=== PATIENT | female | born 1945 | race Caucasian/White ===

== ENCOUNTER 2017-09-25 22:58 | Inpatient (IN) | payer MEDICAID ==
[2017-09-25 23:49] LABS: ADD MAN DIFF? NO
[2017-09-25 23:53] LABS: BASOPHIL # 0.1 10^3/ul (0.0-0.1); BASOPHILS % 1.1 % (0.0-2.0); EOSINOPHILS # 0.7 10^3/ul (0.0-0.5); EOSINOPHILS % 7.5 % (0.0-7.0); HEMATOCRIT 38.7 % (37.0-47.0); HEMOGLOBIN 12.7 g/dl (12.0-16.0); LYMPHOCYTES # 2.4 10^3/ul (0.8-2.9); LYMPHOCYTES % 25.8 % (15.0-51.0); MEAN CORPUSCULAR HEMOGLOBIN 26.3 pg (29.0-33.0); MEAN CORPUSCULAR HGB CONC 32.8 g/dl (32.0-37.0); MEAN CORPUSCULAR VOLUME 80.3 fl (82.0-101.0); MEAN PLATELET VOLUME 11.3 fl (7.4-10.4); MONOCYTE # 0.6 10^3/ul (0.3-0.9); MONOCYTES % 6.2 % (0.0-11.0); NEUTROPHIL # 5.5 10^3/ul (1.6-7.5); NEUTROPHILS % 59.1 % (39.0-77.0); PLATELET COUNT 250 10^3/UL (140-415); RED BLOOD COUNT 4.82 10^6/ul (4.20-5.40); RED CELL DISTRIBUTION WIDTH 13.2 % (11.5-14.5)
[2017-09-25 23:53] LABS: WHITE BLOOD COUNT 9.3 10^3/ul (4.8-10.8)
[2017-09-26 00:15] LABS: ANION GAP 18 (8-16); BLOOD UREA NITROGEN 14 mg/dl (7-20); CALCIUM 9.8 mg/dl (8.4-10.2); CARBON DIOXIDE 22 mmol/L (21-31); CHLORIDE 106 mmol/L (97-110); CREATININE 0.51 mg/dl (0.44-1.00); GLUCOSE 221 mg/dl (70-220); POTASSIUM 4.2 mmol/L (3.5-5.1); SODIUM 142 mmol/L (135-144)
[2017-09-26] MEDS: ASPIRIN 81 MG TAB PO ×2 (00:20→09:00)
[2017-09-26 00:28] LABS: TROPONIN-I 0.121 ng/ml (0.00-0.12)
[2017-09-26] MEDS ORDERED: ACETAMINOPHEN 325 MG TAB PO (03:00)
[2017-09-26] MEDS ORDERED: ONDANSETRON 4 MG INJ IV ×2 (03:00→05:00)
[2017-09-26] MEDS ORDERED: morphine 2 MG INJ IV (04:30)
[2017-09-26] MEDS: hydrALAzine 20 MG INJ IV (04:54)
[2017-09-26] MEDS: DEXTROSE 5%-0.45% NACL 1,000 ML IV (04:56)
[2017-09-26] MEDS: INSULIN ASPART [NOVOLOG] 3 ML PEN SC ×5 (05:00→20:45)
[2017-09-26] MEDS ORDERED: NITROGLYCERIN (SL) 0.4 MG TAB SL (05:00)
[2017-09-26 07:13] LABS: ADD MAN DIFF? NO
[2017-09-26 07:15] LABS: BASOPHIL # 0.1 10^3/ul (0.0-0.1); BASOPHILS % 1.3 % (0.0-2.0); EOSINOPHILS # 0.5 10^3/ul (0.0-0.5); EOSINOPHILS % 7.4 % (0.0-7.0); LYMPHOCYTES % 28.1 % (15.0-51.0); MEAN CORPUSCULAR HEMOGLOBIN 26.5 pg (29.0-33.0); MEAN CORPUSCULAR HGB CONC 33.3 g/dl (32.0-37.0); MEAN CORPUSCULAR VOLUME 79.4 fl (82.0-101.0); MEAN PLATELET VOLUME 11.3 fl (7.4-10.4); MONOCYTE # 0.4 10^3/ul (0.3-0.9); MONOCYTES % 6.3 % (0.0-11.0); NEUTROPHILS % 56.6 % (39.0-77.0); PLATELET COUNT 261 10^3/UL (140-415); RED BLOOD COUNT 4.91 10^6/ul (4.20-5.40); RED CELL DISTRIBUTION WIDTH 13.1 % (11.5-14.5)
[2017-09-26 07:36] LABS: CREATINE KINASE 67 IU/L (23-200)
[2017-09-26 07:40] LABS: ALANINE AMINOTRANSFERASE 22 IU/L (13-69); ALBUMIN 4.2 g/dl (3.3-4.9); ALBUMIN/GLOBULIN RATIO 1.23; ALKALINE PHOSPHATASE 78 IU/L (42-121); ANION GAP 17 (8-16); ASPARTATE AMINO TRANSFERASE 19 IU/L (15-46); BILIRUBIN,INDIRECT 0.3 mg/dl (0-1.1); BILIRUBIN,TOTAL 0.3 mg/dl (0.2-1.3); BLOOD UREA NITROGEN 10 mg/dl (7-20); CALCIUM 9.6 mg/dl (8.4-10.2); CARBON DIOXIDE 24 mmol/L (21-31); CHLORIDE 106 mmol/L (97-110); CHOL/HDL RATIO 3.5 RATIO; CHOLESTEROL 182 mg/dl (100-200); CREATININE 0.44 mg/dl (0.44-1.00); GLUCOSE 136 mg/dl (70-220); HDL CHOLESTEROL 52 mg/dl (33-92); LDL CHOLESTEROL,CALCULATED 98 mg/dl; MAGNESIUM 1.5 mg/dl (1.7-2.5); PHOSPHORUS 4.2 mg/dl (2.5-4.9); POTASSIUM 3.8 mmol/L (3.5-5.1); SODIUM 143 mmol/L (135-144); TOTAL PROTEIN 7.6 g/dl (6.1-8.1); TRIGLYCERIDES 158 mg/dl (0-149)
[2017-09-26 07:45] LABS: HEMOGLOBIN A1C 7.9 % (0-5.9)
[2017-09-26 07:48] LABS: CK-MB 2.68 ng/ml (0.0-2.4)
[2017-09-26 07:56] LABS: TROPONIN-I 0.248 ng/ml (0.00-0.12)
[2017-09-26] MEDS: INSULIN GLARGINE [LANtus] 3 ML PEN SC (08:00)
[2017-09-26] MEDS ORDERED: HEPARIN 1000 UNITS/ML 10 ML INJ (08:08)
[2017-09-26] MEDS ORDERED: LIDOCAINE 1% (MDV) 20 ML INJ (08:08)
[2017-09-26] MEDS ORDERED: FENTAnyl 50 MCG/ML VIAL (08:09)
[2017-09-26] MEDS ORDERED: NITROGLYCERIN (IC) 100 MCG/ML INJ (08:09)
[2017-09-26] MEDS ORDERED: VERAPAMIL 5 MG INJ (08:09)
[2017-09-26] MEDS ORDERED: MIDAZOLAM 1 MG/ML 2 ML INJ (08:09)
[2017-09-26] MEDS: GABAPENTIN 100 MG CAP PO ×3 (09:00→20:42)
[2017-09-26] MEDS ORDERED: DILTIAZEM (CD) 180 MG CAP PO (09:00)
[2017-09-26] MEDS ORDERED: HEPARIN 5,000 UNIT/0.5 ML VIAL SC (09:00)
[2017-09-26] MEDS: LOSARTAN 50 MG TAB PO (09:00)
[2017-09-26] MEDS: METOPROLOL 25 MG TAB PO ×2 (10:00→20:43)
[2017-09-26] MEDS: MAGNESIUM SULFATE 2 GM/50 ML 50 ML IVPB (10:34)
[2017-09-26] MEDS: ENOXAPARIN 100 MG/ML SYG SC ×2 (11:00→20:49)
[2017-09-26] MEDS ORDERED: ACETAMINOPHEN 325 MG TAB (11:40)
[2017-09-26] MEDS: ACETAMINOPHEN 325 MG TAB PO (11:48)
[2017-09-26 15:04] LABS: CREATINE KINASE 64 IU/L (23-200)
[2017-09-26 15:11] LABS: CK INDEX 3.9; CK-MB 2.47 ng/ml (0.0-2.4)
[2017-09-26 15:22] LABS: TROPONIN-I 0.288 ng/ml (0.00-0.12)
[2017-09-26] MEDS ORDERED: INSULIN DETEMIR [LEVEMIR] 3ML CART SC (20:00)
[2017-09-26] MEDS: ATORVASTATIN 40 MG TAB PO (20:42)
[2017-09-26] MEDS ORDERED: ATORVASTATIN 20 MG TAB PO (21:00)
[2017-09-26] MEDS ORDERED: DEXTROSE 50% 50 ML SYRINGE IV ×2 (21:30)
[2017-09-26] MEDS ORDERED: GLUCOSE GEL 15 GRAM TUBE PO ×2 (21:30)
[2017-09-26] MEDS ORDERED: GLUCAGON 1 MG INJ IM (21:30)
[2017-09-26] MEDS ORDERED: GLUCOSE GEL 15 GRAM TUBE BUCCAL (21:30)
[2017-09-27] MEDS: ACCU-CHEK XX (02:00)
[2017-09-27] MEDS ORDERED: ACCU-CHEK XX (02:00)
[2017-09-27] MEDS: ASPIRIN 81 MG TAB PO (08:24)
[2017-09-27] MEDS: LOSARTAN 50 MG TAB PO (08:24)
[2017-09-27] MEDS: GABAPENTIN 100 MG CAP PO (08:25)
[2017-09-27] MEDS: METOPROLOL 25 MG TAB PO (08:25)
[2017-09-27] MEDS: INSULIN ASPART [NOVOLOG] 3 ML PEN SC ×2 (08:28→12:08)
[2017-09-27] MEDS: ENOXAPARIN 100 MG/ML SYG SC (08:29)
[2017-09-27] MEDS: INSULIN GLARGINE [LANtus] 3 ML PEN SC (09:04)
[2017-09-28] MEDS ORDERED: INFLUENZA VIRUS VACCINE 0.5 ML (DISPENSING) IM* (09:00)
== END 2017-09-27 13:06 | disposition home or self-care (01) | DRG 281 ==
LOC: TEL 09-26 03:28 → E/R 22:58 → TEL 09-26 02:50
PROC: 4A023N7 Measurement of Cardiac Sampling and Pressure, Left Heart, Percutaneous Approach (ICD-10-PCS; principal; 2017-09-26 08:30)
PROC: B211YZZ Fluoroscopy of Multiple Coronary Arteries using Other Contrast (ICD-10-PCS; 2017-09-26 08:30)
PROC: B215YZZ Fluoroscopy of Left Heart using Other Contrast (ICD-10-PCS; 2017-09-26 08:30)
DX: I21.4 Non-ST elevation (NSTEMI) myocardial infarction (principal); I42.9 Cardiomyopathy, unspecified; I10 Essential (primary) hypertension; E78.5 Hyperlipidemia, unspecified; E11.9 Type 2 diabetes mellitus without complications; I25.10 Atherosclerotic heart disease of native coronary artery without angina pectoris; F41.9 Anxiety disorder, unspecified; Z79.4 Long term (current) use of insulin
CPT/HCPCS: 36415; 71045; 74176; 80048; 80053; 80061; 82550; 82553; 82962; 83036; 83735; 84100; 84443; 84484; 85025; 93005; 93306; 93458; 99285-25

== ENCOUNTER 2018-06-25 18:49 | Inpatient (IN) | payer BC, MEDICAID ==
[2018-06-25] MEDS: ASPIRIN 325 MG TAB PO (21:56)
[2018-06-25 22:03] LABS: ADD MAN DIFF? NO
[2018-06-25 22:06] LABS: BASOPHIL # 0.1 10^3/ul (0.0-0.1); BASOPHILS % 0.8 % (0.0-2.0); EOSINOPHILS # 0.5 10^3/ul (0.0-0.5); EOSINOPHILS % 4.7 % (0.0-7.0); HEMATOCRIT 37.3 % (37.0-47.0); HEMOGLOBIN 12.2 g/dl (12.0-16.0); LYMPHOCYTES # 3.2 10^3/ul (0.8-2.9); MEAN CORPUSCULAR HEMOGLOBIN 26.1 pg (29.0-33.0); MEAN CORPUSCULAR HGB CONC 32.7 g/dl (32.0-37.0); MEAN CORPUSCULAR VOLUME 79.9 fl (82.0-101.0); MONOCYTE # 0.6 10^3/ul (0.3-0.9); MONOCYTES % 5.7 % (0.0-11.0); NEUTROPHIL # 5.9 10^3/ul (1.6-7.5); NEUTROPHILS % 57.5 % (39.0-77.0); PLATELET COUNT 311 10^3/UL (140-415); RED BLOOD COUNT 4.67 10^6/ul (4.20-5.40); RED CELL DISTRIBUTION WIDTH 13.3 % (11.5-14.5)
[2018-06-25 22:06] LABS: WHITE BLOOD COUNT 10.2 10^3/ul (4.8-10.8)
[2018-06-25 22:24] LABS: INR 0.93; PROTIME 12.6 Sec (11.9-14.9)
[2018-06-25 22:25] LABS: PARTIAL THROMBOPLASTIN TIME 29.5 Sec (23.0-35.0)
[2018-06-25 22:33] LABS: ANION GAP 17 (5-13); BLOOD UREA NITROGEN 22 mg/dl (7-20); CALCIUM 9.6 mg/dl (8.4-10.2); CARBON DIOXIDE 21 mmol/L (21-31); CHLORIDE 102 mmol/L (97-110); CREATININE 0.53 mg/dl (0.44-1.00); GLUCOSE 175 mg/dl (70-220); POTASSIUM 4.4 mmol/L (3.5-5.1); SODIUM 140 mmol/L (135-144)
[2018-06-25 22:41] LABS: TROPONIN-I < 0.012 ng/ml (0.000-0.120)
[2018-06-25] MEDS ORDERED: ACETAMINOPHEN 325 MG TAB PO (23:00)
[2018-06-25] MEDS ORDERED: ONDANSETRON 4 MG TAB PO (23:00)
[2018-06-25] MEDS ORDERED: NACL 0.9% 3 ML SYG IV (23:00)
[2018-06-25] MEDS ORDERED: DOCUSATE SODIUM 100 MG CAP PO (23:00)
[2018-06-25] MEDS ORDERED: BISACODYL (EC) 5 MG TAB PO (23:00)
[2018-06-25] MEDS ORDERED: ONDANSETRON 4 MG INJ IV (23:00)
[2018-06-25] MEDS ORDERED: NITROGLYCERIN (SL) 0.4 MG TAB SL (23:00)
[2018-06-25] MEDS: METOPROLOL 25 MG TAB PO (23:53)
[2018-06-25] MEDS: HEPARIN 5,000 UNIT/1 ML VIAL SC (23:53)
[2018-06-26] MEDS ORDERED: GLUCAGON 1 MG INJ IM (02:30)
[2018-06-26] MEDS ORDERED: GLUCOSE GEL 15 GRAM TUBE PO ×2 (02:30)
[2018-06-26] MEDS ORDERED: GLUCOSE GEL 15 GRAM TUBE BUCCAL (02:30)
[2018-06-26] MEDS ORDERED: DEXTROSE 50% 50 ML SYRINGE IV ×2 (02:30)
[2018-06-26] MEDS: AMLODIPINE 10 MG TAB PO ×2 (03:03→09:18)
[2018-06-26 04:56] LABS: WHITE BLOOD COUNT 7.7 10^3/ul (4.8-10.8)
[2018-06-26 04:56] LABS: ADD MAN DIFF? NO; BASOPHIL # 0.1 10^3/ul (0.0-0.1); BASOPHILS % 0.8 % (0.0-2.0); EOSINOPHILS # 0.4 10^3/ul (0.0-0.5); EOSINOPHILS % 5.6 % (0.0-7.0); HEMOGLOBIN 11.4 g/dl (12.0-16.0); LYMPHOCYTES # 2.7 10^3/ul (0.8-2.9); LYMPHOCYTES % 34.2 % (15.0-51.0); MEAN CORPUSCULAR HEMOGLOBIN 26.3 pg (29.0-33.0); MEAN CORPUSCULAR HGB CONC 32.6 g/dl (32.0-37.0); MEAN CORPUSCULAR VOLUME 80.6 fl (82.0-101.0); MEAN PLATELET VOLUME 11.1 fl (7.4-10.4); MONOCYTE # 0.4 10^3/ul (0.3-0.9); MONOCYTES % 5.4 % (0.0-11.0); NEUTROPHIL # 4.2 10^3/ul (1.6-7.5); NEUTROPHILS % 53.7 % (39.0-77.0); PLATELET COUNT 283 10^3/UL (140-415); RED BLOOD COUNT 4.34 10^6/ul (4.20-5.40)
[2018-06-26 05:10] LABS: HEMOGLOBIN A1C 8.8 % (0-5.9)
[2018-06-26 05:16] LABS: CREATINE KINASE 52 IU/L (23-200)
[2018-06-26 05:22] LABS: IRON 64 ug/dl (35-150)
[2018-06-26 05:24] LABS: ALANINE AMINOTRANSFERASE 21 IU/L (13-69); ALBUMIN 3.8 g/dl (3.3-4.9); ALBUMIN/GLOBULIN RATIO 1.18; ALKALINE PHOSPHATASE 67 IU/L (42-121); ANION GAP 14 (5-13); ASPARTATE AMINO TRANSFERASE 17 IU/L (15-46); BILIRUBIN,INDIRECT 0.1 mg/dl (0-1.1); BILIRUBIN,TOTAL 0.1 mg/dl (0.2-1.3); BLOOD UREA NITROGEN 16 mg/dl (7-20); CALCIUM 9.4 mg/dl (8.4-10.2); CARBON DIOXIDE 24 mmol/L (21-31); CHLORIDE 103 mmol/L (97-110); CHOL/HDL RATIO 3.6 RATIO; CHOLESTEROL 166 mg/dl (100-200); CREATININE 0.44 mg/dl (0.44-1.00); GLUCOSE 188 mg/dl (70-220); HDL CHOLESTEROL 46 mg/dl (33-92); LDL CHOLESTEROL,CALCULATED 88 mg/dl; MAGNESIUM 1.7 mg/dl (1.7-2.5); POTASSIUM 4.4 mmol/L (3.5-5.1); SODIUM 141 mmol/L (135-144); TRIGLYCERIDES 159 mg/dl (0-149)
[2018-06-26 05:27] LABS: CK INDEX 1.2; CK-MB 0.63 ng/ml (0.0-2.4); TROPONIN-I < 0.012 ng/ml (0.000-0.120)
[2018-06-26 05:31] LABS: % IRON SATURATION 21 % SAT (22-52); TOTAL IRON BINDING CAPACITY 305 ug/dl (241-421)
[2018-06-26 05:53] LABS: THYROID STIMULATING HORMONE 0.791 MIU/L (0.465-4.680)
[2018-06-26] MEDS: HEPARIN 5,000 UNIT/1 ML VIAL SC ×3 (05:54→21:46)
[2018-06-26] MEDS: INSULIN ASPART [NOVOLOG] 3 ML PEN SC ×4 (08:14→21:45)
[2018-06-26 08:53] LABS: FERRITIN 67.1 ng/ml (11.1-264.0)
[2018-06-26] MEDS ORDERED: ASPIRIN 81 MG TAB PO (09:00)
[2018-06-26] MEDS: BUSPIRONE 5 MG TAB PO ×2 (09:17→20:52)
[2018-06-26] MEDS: GABAPENTIN 300 MG CAP PO (09:17)
[2018-06-26] MEDS: MOMETASONE 0.24 GM INHALER INH ×2 (09:17→20:52)
[2018-06-26] MEDS: ASPIRIN (EC) 81 MG TAB PO (09:18)
[2018-06-26] MEDS: LORATADINE 10 MG TAB PO (09:18)
[2018-06-26] MEDS: LOSARTAN 50 MG TAB PO (09:18)
[2018-06-26] MEDS: METOPROLOL 25 MG TAB PO (09:19)
[2018-06-26 10:41] LABS: CREATINE KINASE 47 IU/L (23-200)
[2018-06-26 10:54] LABS: CK INDEX 1.1; CK-MB 0.51 ng/ml (0.0-2.4); TROPONIN-I < 0.012 ng/ml (0.000-0.120)
[2018-06-26] MEDS: ISOSORBIDE DINITRATE 5 MG TAB PO ×2 (13:42→20:51)
[2018-06-26] MEDS ORDERED: METOPROLOL 25 MG TAB (19:55)
[2018-06-26] MEDS ORDERED: ATORVASTATIN 40 MG TAB (19:55)
[2018-06-26] MEDS: ATORVASTATIN 40 MG TAB PO (20:52)
[2018-06-26] MEDS: METOPROLOL 50 MG TAB PO (20:55)
[2018-06-27] MEDS: ACCU-CHEK XX (02:00)
[2018-06-27] MEDS ORDERED: COLLAGENASE 5 GM (UD JAR) TOP (04:32)
[2018-06-27 06:06] LABS: ADD MAN DIFF? NO
[2018-06-27] MEDS: HEPARIN 5,000 UNIT/1 ML VIAL SC ×3 (06:09→23:12)
[2018-06-27 06:13] LABS: BASOPHIL # 0.1 10^3/ul (0.0-0.1); BASOPHILS % 1.1 % (0.0-2.0); EOSINOPHILS # 0.4 10^3/ul (0.0-0.5); EOSINOPHILS % 4.6 % (0.0-7.0); HEMOGLOBIN 11.6 g/dl (12.0-16.0); LYMPHOCYTES # 2.9 10^3/ul (0.8-2.9); LYMPHOCYTES % 37.8 % (15.0-51.0); MEAN CORPUSCULAR HEMOGLOBIN 25.9 pg (29.0-33.0); MEAN CORPUSCULAR HGB CONC 32.2 g/dl (32.0-37.0); MEAN CORPUSCULAR VOLUME 80.4 fl (82.0-101.0); MEAN PLATELET VOLUME 11.2 fl (7.4-10.4); MONOCYTE # 0.5 10^3/ul (0.3-0.9); MONOCYTES % 6.7 % (0.0-11.0); NEUTROPHIL # 3.8 10^3/ul (1.6-7.5); NEUTROPHILS % 49.4 % (39.0-77.0); PLATELET COUNT 296 10^3/UL (140-415); RED BLOOD COUNT 4.48 10^6/ul (4.20-5.40); RED CELL DISTRIBUTION WIDTH 13.1 % (11.5-14.5)
[2018-06-27 06:13] LABS: WHITE BLOOD COUNT 7.6 10^3/ul (4.8-10.8)
[2018-06-27 06:37] LABS: ANION GAP 13 (5-13); BLOOD UREA NITROGEN 18 mg/dl (7-20); CALCIUM 9.3 mg/dl (8.4-10.2); CARBON DIOXIDE 24 mmol/L (21-31); CHLORIDE 102 mmol/L (97-110); CREATININE 0.56 mg/dl (0.44-1.00); GLUCOSE 215 mg/dl (70-220); POTASSIUM 4.5 mmol/L (3.5-5.1); SODIUM 139 mmol/L (135-144)
[2018-06-27 06:48] LABS: TROPONIN-I < 0.012 ng/ml (0.000-0.120)
[2018-06-27 06:50] LABS: PHOSPHORUS 4.6 mg/dl (2.5-4.9)
[2018-06-27] MEDS: MOMETASONE 0.24 GM INHALER INH ×2 (08:53→20:46)
[2018-06-27] MEDS: BUSPIRONE 5 MG TAB PO ×2 (08:53→20:43)
[2018-06-27] MEDS: ASPIRIN (EC) 81 MG TAB PO (08:53)
[2018-06-27] MEDS: ISOSORBIDE DINITRATE 5 MG TAB PO ×3 (08:53→20:42)
[2018-06-27] MEDS: GABAPENTIN 300 MG CAP PO (08:54)
[2018-06-27] MEDS: AMLODIPINE 5 MG TAB PO (08:54)
[2018-06-27] MEDS: COLLAGENASE 5 GM (UD JAR) TOP (08:54)
[2018-06-27] MEDS: LORATADINE 10 MG TAB PO (08:54)
[2018-06-27] MEDS: LOSARTAN 50 MG TAB PO (08:55)
[2018-06-27] MEDS: METOPROLOL 50 MG TAB PO ×2 (08:55→20:43)
[2018-06-27] MEDS: INSULIN ASPART [NOVOLOG] 3 ML PEN SC ×4 (09:36→21:09)
[2018-06-27] MEDS: ATORVASTATIN 40 MG TAB PO (20:42)
[2018-06-28] MEDS: ACCU-CHEK XX (02:41)
[2018-06-28] MEDS: INSULIN ASPART [NOVOLOG] 3 ML PEN SC ×5 (03:09→19:55)
[2018-06-28 05:25] LABS: ADD MAN DIFF? NO
[2018-06-28 05:30] LABS: WHITE BLOOD COUNT 7.7 10^3/ul (4.8-10.8)
[2018-06-28 05:30] LABS: BASOPHIL # 0.1 10^3/ul (0.0-0.1); BASOPHILS % 0.9 % (0.0-2.0); EOSINOPHILS # 0.4 10^3/ul (0.0-0.5); EOSINOPHILS % 4.7 % (0.0-7.0); HEMATOCRIT 35.7 % (37.0-47.0); HEMOGLOBIN 11.5 g/dl (12.0-16.0); LYMPHOCYTES # 2.6 10^3/ul (0.8-2.9); MEAN CORPUSCULAR HEMOGLOBIN 26.2 pg (29.0-33.0); MEAN CORPUSCULAR HGB CONC 32.2 g/dl (32.0-37.0); MEAN CORPUSCULAR VOLUME 81.3 fl (82.0-101.0); MONOCYTE # 0.5 10^3/ul (0.3-0.9); NEUTROPHIL # 4.2 10^3/ul (1.6-7.5); NEUTROPHILS % 54.1 % (39.0-77.0); PLATELET COUNT 308 10^3/UL (140-415); RED BLOOD COUNT 4.39 10^6/ul (4.20-5.40); RED CELL DISTRIBUTION WIDTH 13.1 % (11.5-14.5)
[2018-06-28 06:01] LABS: PHOSPHORUS 3.9 mg/dl (2.5-4.9)
[2018-06-28 06:01] LABS: ANION GAP 10 (5-13); BLOOD UREA NITROGEN 16 mg/dl (7-20); CALCIUM 9.5 mg/dl (8.4-10.2); CARBON DIOXIDE 23 mmol/L (21-31); CHLORIDE 107 mmol/L (97-110); CREATININE 0.58 mg/dl (0.44-1.00); GLUCOSE 168 mg/dl (70-220); MAGNESIUM 1.8 mg/dl (1.7-2.5); SODIUM 140 mmol/L (135-144)
[2018-06-28] MEDS: HEPARIN 5,000 UNIT/1 ML VIAL SC ×3 (06:45→22:28)
[2018-06-28] MEDS: BUSPIRONE 5 MG TAB PO ×2 (08:32→20:30)
[2018-06-28] MEDS: LOSARTAN 50 MG TAB PO (08:32)
[2018-06-28] MEDS: AMLODIPINE 5 MG TAB PO (08:32)
[2018-06-28] MEDS: GABAPENTIN 300 MG CAP PO (08:32)
[2018-06-28] MEDS: ASPIRIN (EC) 81 MG TAB PO (08:32)
[2018-06-28] MEDS: METOPROLOL 50 MG TAB PO ×2 (08:33→20:31)
[2018-06-28] MEDS: LORATADINE 10 MG TAB PO (08:33)
[2018-06-28] MEDS: COLLAGENASE 5 GM (UD JAR) TOP (08:34)
[2018-06-28] MEDS: ISOSORBIDE DINITRATE 5 MG TAB PO ×3 (08:34→20:31)
[2018-06-28] MEDS: MOMETASONE 0.24 GM INHALER INH ×2 (08:34→20:31)
[2018-06-28] MEDS: ACETAMINOPHEN 325 MG TAB PO (17:25)
[2018-06-28] MEDS: ATORVASTATIN 40 MG TAB PO (20:30)
[2018-06-29] MEDS: ACCU-CHEK XX (02:38)
[2018-06-29 05:35] LABS: ADD MAN DIFF? NO
[2018-06-29] MEDS: HEPARIN 5,000 UNIT/1 ML VIAL SC ×2 (05:37→13:42)
[2018-06-29 05:45] LABS: WHITE BLOOD COUNT 7.1 10^3/ul (4.8-10.8)
[2018-06-29 05:45] LABS: BASOPHIL # 0.1 10^3/ul (0.0-0.1); BASOPHILS % 1.1 % (0.0-2.0); EOSINOPHILS # 0.4 10^3/ul (0.0-0.5); HEMATOCRIT 37.2 % (37.0-47.0); LYMPHOCYTES # 2.6 10^3/ul (0.8-2.9); LYMPHOCYTES % 36.2 % (15.0-51.0); MEAN CORPUSCULAR HEMOGLOBIN 26.1 pg (29.0-33.0); MEAN CORPUSCULAR HGB CONC 32.3 g/dl (32.0-37.0); MEAN CORPUSCULAR VOLUME 80.9 fl (82.0-101.0); MEAN PLATELET VOLUME 11.3 fl (7.4-10.4); MONOCYTE # 0.5 10^3/ul (0.3-0.9); MONOCYTES % 6.5 % (0.0-11.0); NEUTROPHIL # 3.6 10^3/ul (1.6-7.5); NEUTROPHILS % 50.8 % (39.0-77.0); PLATELET COUNT 307 10^3/UL (140-415); RED CELL DISTRIBUTION WIDTH 13.2 % (11.5-14.5)
[2018-06-29 06:12] LABS: MAGNESIUM 1.9 mg/dl (1.7-2.5)
[2018-06-29 06:12] LABS: PHOSPHORUS 4.5 mg/dl (2.5-4.9)
[2018-06-29 06:20] LABS: ANION GAP 8 (5-13); BLOOD UREA NITROGEN 18 mg/dl (7-20); CALCIUM 9.5 mg/dl (8.4-10.2); CARBON DIOXIDE 23 mmol/L (21-31); CHLORIDE 106 mmol/L (97-110); CREATININE 0.55 mg/dl (0.44-1.00); GLUCOSE 224 mg/dl (70-220); POTASSIUM 4.5 mmol/L (3.5-5.1); SODIUM 137 mmol/L (135-144)
[2018-06-29 06:59] LABS: IRON 119 ug/dl (35-150)
[2018-06-29 07:09] LABS: % IRON SATURATION 38 % SAT (22-52); TOTAL IRON BINDING CAPACITY 312 ug/dl (241-421)
[2018-06-29 07:35] LABS: FERRITIN 96.2 ng/ml (11.1-264.0)
[2018-06-29] MEDS: INSULIN ASPART [NOVOLOG] 3 ML PEN SC ×5 (08:32→22:03)
[2018-06-29] MEDS: BUSPIRONE 5 MG TAB PO ×2 (08:54→20:38)
[2018-06-29] MEDS: AMLODIPINE 5 MG TAB PO (08:54)
[2018-06-29] MEDS: COLLAGENASE 5 GM (UD JAR) TOP (08:54)
[2018-06-29] MEDS: LORATADINE 10 MG TAB PO (08:55)
[2018-06-29] MEDS: METOPROLOL 50 MG TAB PO ×2 (08:55→20:38)
[2018-06-29] MEDS: ISOSORBIDE DINITRATE 5 MG TAB PO ×3 (08:55→20:37)
[2018-06-29] MEDS: ASPIRIN (EC) 81 MG TAB PO (08:55)
[2018-06-29] MEDS: CHOLECALCIFEROL 1,000 UNIT TAB PO (08:55)
[2018-06-29] MEDS: GABAPENTIN 300 MG CAP PO (08:56)
[2018-06-29] MEDS: LOSARTAN 50 MG TAB PO (08:56)
[2018-06-29] MEDS: MOMETASONE 0.24 GM INHALER INH (08:56)
[2018-06-29] MEDS: ATORVASTATIN 40 MG TAB PO (20:39)
[2018-06-29] MEDS: INSULIN GLARGINE [LANTus] (100 UNITS/ML) SYG SC (22:03)
[2018-06-29] MEDS: ACETAMINOPHEN 325 MG TAB PO (23:16)
[2018-06-30] MEDS: HEPARIN 5,000 UNIT/1 ML VIAL SC ×4 (00:18→22:34)
[2018-06-30] MEDS: ACCU-CHEK XX (02:00)
[2018-06-30 05:50] LABS: ADD MAN DIFF? NO
[2018-06-30 05:52] LABS: WHITE BLOOD COUNT 7.3 10^3/ul (4.8-10.8)
[2018-06-30 05:52] LABS: BASOPHIL # 0.1 10^3/ul (0.0-0.1); BASOPHILS % 1.2 % (0.0-2.0); EOSINOPHILS # 0.3 10^3/ul (0.0-0.5); EOSINOPHILS % 4.6 % (0.0-7.0); HEMATOCRIT 36.2 % (37.0-47.0); LYMPHOCYTES # 2.8 10^3/ul (0.8-2.9); LYMPHOCYTES % 37.5 % (15.0-51.0); MEAN CORPUSCULAR HEMOGLOBIN 26.7 pg (29.0-33.0); MEAN CORPUSCULAR HGB CONC 33.1 g/dl (32.0-37.0); MEAN CORPUSCULAR VOLUME 80.6 fl (82.0-101.0); MEAN PLATELET VOLUME 11.2 fl (7.4-10.4); MONOCYTE # 0.5 10^3/ul (0.3-0.9); MONOCYTES % 7.1 % (0.0-11.0); NEUTROPHIL # 3.6 10^3/ul (1.6-7.5); NEUTROPHILS % 49.1 % (39.0-77.0); PLATELET COUNT 283 10^3/UL (140-415); RED BLOOD COUNT 4.49 10^6/ul (4.20-5.40); RED CELL DISTRIBUTION WIDTH 13.3 % (11.5-14.5)
[2018-06-30 06:14] LABS: INR 0.94; PROTIME 12.7 Sec (11.9-14.9)
[2018-06-30 06:15] LABS: ANION GAP 9 (5-13); BLOOD UREA NITROGEN 21 mg/dl (7-20); CALCIUM 9.4 mg/dl (8.4-10.2); CARBON DIOXIDE 22 mmol/L (21-31); CHLORIDE 105 mmol/L (97-110); CREATININE 0.58 mg/dl (0.44-1.00); GLUCOSE 212 mg/dl (70-220); POTASSIUM 4.4 mmol/L (3.5-5.1); SODIUM 136 mmol/L (135-144)
[2018-06-30] MEDS: INSULIN ASPART [NOVOLOG] 3 ML PEN SC ×7 (07:44→20:53)
[2018-06-30] MEDS: GABAPENTIN 300 MG CAP PO (08:51)
[2018-06-30] MEDS: BUSPIRONE 5 MG TAB PO ×2 (08:51→20:37)
[2018-06-30] MEDS: ISOSORBIDE DINITRATE 5 MG TAB PO ×3 (08:51→20:37)
[2018-06-30] MEDS: COLLAGENASE 5 GM (UD JAR) TOP (08:52)
[2018-06-30] MEDS: METOPROLOL 50 MG TAB PO ×2 (08:52→20:38)
[2018-06-30] MEDS: CHOLECALCIFEROL 1,000 UNIT TAB PO (08:52)
[2018-06-30] MEDS: ASPIRIN (EC) 81 MG TAB PO (08:52)
[2018-06-30] MEDS: LORATADINE 10 MG TAB PO (08:52)
[2018-06-30] MEDS: MOMETASONE 0.24 GM INHALER INH ×4 (08:53→20:38)
[2018-06-30] MEDS: AMLODIPINE 5 MG TAB PO (11:23)
[2018-06-30] MEDS: LOSARTAN 50 MG TAB PO (11:23)
[2018-06-30] MEDS: ATORVASTATIN 40 MG TAB PO (20:37)
[2018-06-30] MEDS: INSULIN GLARGINE [LANTus] (100 UNITS/ML) SYG SC (20:51)
[2018-07-01] MEDS: ACCU-CHEK XX (02:00)
[2018-07-01] MEDS: HEPARIN 5,000 UNIT/1 ML VIAL SC ×3 (06:10→21:30)
[2018-07-01] MEDS: INSULIN ASPART [NOVOLOG] 3 ML PEN SC ×7 (07:43→20:44)
[2018-07-01] MEDS: MOMETASONE 0.24 GM INHALER INH ×2 (08:09→20:44)
[2018-07-01] MEDS: LOSARTAN 50 MG TAB PO (08:10)
[2018-07-01] MEDS: CHOLECALCIFEROL 1,000 UNIT TAB PO (08:10)
[2018-07-01] MEDS: GABAPENTIN 300 MG CAP PO (08:11)
[2018-07-01] MEDS: ISOSORBIDE DINITRATE 5 MG TAB PO ×3 (08:11→20:43)
[2018-07-01] MEDS: LORATADINE 10 MG TAB PO (08:11)
[2018-07-01] MEDS: BUSPIRONE 5 MG TAB PO ×2 (08:11→20:43)
[2018-07-01] MEDS: ASPIRIN (EC) 81 MG TAB PO (08:11)
[2018-07-01] MEDS: COLLAGENASE 5 GM (UD JAR) TOP (08:11)
[2018-07-01] MEDS: METOPROLOL 50 MG TAB PO ×2 (08:11→20:43)
[2018-07-01 08:26] LABS: ADD MAN DIFF? NO
[2018-07-01 08:32] LABS: BASOPHIL # 0.1 10^3/ul (0.0-0.1); BASOPHILS % 1.1 % (0.0-2.0); EOSINOPHILS # 0.3 10^3/ul (0.0-0.5); EOSINOPHILS % 3.7 % (0.0-7.0); HEMATOCRIT 37.6 % (37.0-47.0); HEMOGLOBIN 12.2 g/dl (12.0-16.0); LYMPHOCYTES # 2.5 10^3/ul (0.8-2.9); LYMPHOCYTES % 30.9 % (15.0-51.0); MEAN CORPUSCULAR HGB CONC 32.4 g/dl (32.0-37.0); MEAN PLATELET VOLUME 10.6 fl (7.4-10.4); MONOCYTE # 0.5 10^3/ul (0.3-0.9); MONOCYTES % 6.4 % (0.0-11.0); NEUTROPHIL # 4.6 10^3/ul (1.6-7.5); NEUTROPHILS % 57.5 % (39.0-77.0); PLATELET COUNT 312 10^3/UL (140-415); RED CELL DISTRIBUTION WIDTH 13.2 % (11.5-14.5)
[2018-07-01 08:47] LABS: INR 0.98; PROTIME 13.1 Sec (11.9-14.9)
[2018-07-01 08:48] LABS: PARTIAL THROMBOPLASTIN TIME 53.1 Sec (23.0-35.0)
[2018-07-01 08:50] LABS: ANION GAP 13 (5-13); BLOOD UREA NITROGEN 19 mg/dl (7-20); CALCIUM 9.6 mg/dl (8.4-10.2); CARBON DIOXIDE 23 mmol/L (21-31); CHLORIDE 105 mmol/L (97-110); CREATININE 0.49 mg/dl (0.44-1.00); GLUCOSE 183 mg/dl (70-220); POTASSIUM 4.3 mmol/L (3.5-5.1); SODIUM 141 mmol/L (135-144)
[2018-07-01] MEDS: ATORVASTATIN 40 MG TAB PO (20:43)
[2018-07-01] MEDS: ACETAMINOPHEN 325 MG TAB PO (20:43)
[2018-07-01] MEDS: INSULIN GLARGINE [LANTus] (100 UNITS/ML) SYG SC (20:52)
[2018-07-02] MEDS: ACCU-CHEK XX (02:00)
[2018-07-02] MEDS: HEPARIN 5,000 UNIT/1 ML VIAL SC ×2 (05:49→13:20)
[2018-07-02] MEDS: INSULIN ASPART [NOVOLOG] 3 ML PEN SC ×6 (08:00→17:22)
[2018-07-02] MEDS: MOMETASONE 0.24 GM INHALER INH (08:24)
[2018-07-02] MEDS: BUSPIRONE 5 MG TAB PO (08:24)
[2018-07-02] MEDS: ISOSORBIDE DINITRATE 5 MG TAB PO ×2 (08:25→13:16)
[2018-07-02] MEDS: METOPROLOL 50 MG TAB PO (08:25)
[2018-07-02] MEDS: GABAPENTIN 300 MG CAP PO (08:25)
[2018-07-02] MEDS: LORATADINE 10 MG TAB PO (08:25)
[2018-07-02] MEDS: CHOLECALCIFEROL 1,000 UNIT TAB PO (08:25)
[2018-07-02] MEDS: LOSARTAN 50 MG TAB PO (08:25)
[2018-07-02] MEDS: ASPIRIN (EC) 81 MG TAB PO (08:25)
[2018-07-02] MEDS: COLLAGENASE 5 GM (UD JAR) TOP (08:26)
== END 2018-07-02 20:15 | disposition home health service (06) | DRG 301 ==
LOC: 6WM 22:56 → E/R 18:49
DX: I70.235 Atherosclerosis of native arteries of right leg with ulceration of other part of foot (principal); I25.118 Atherosclerotic heart disease of native coronary artery with other forms of angina pectoris; I70.212 Atherosclerosis of native arteries of extremities with intermittent claudication, left leg; E11.42 Type 2 diabetes mellitus with diabetic polyneuropathy; F41.9 Anxiety disorder, unspecified; I10 Essential (primary) hypertension; E78.5 Hyperlipidemia, unspecified; J30.2 Other seasonal allergic rhinitis; I25.5 Ischemic cardiomyopathy; E11.621 Type 2 diabetes mellitus with foot ulcer; I25.2 Old myocardial infarction; R62.7 Adult failure to thrive; Z68.22 Body mass index [BMI] 22.0-22.9, adult; E11.51 Type 2 diabetes mellitus with diabetic peripheral angiopathy without gangrene; L97.519 Non-pressure chronic ulcer of other part of right foot with unspecified severity
CPT/HCPCS: 36415; 71045; 73630; 80048; 80053; 80061; 82306; 82550; 82553; 82652; 82728; 82962; 83036; 83540; 83735; 84100; 84443; 84484; 85025; 85610; 85730; 90686; 93005; 93306; 93923; 99285-25; G0378

== ENCOUNTER 2018-08-24 09:38 | Day surgery (SDC) | payer BC ==
[2018-08-24 11:21] LABS: ADD MAN DIFF? NO
[2018-08-24 11:27] LABS: BASOPHIL # 0.1 10^3/ul (0.0-0.1); BASOPHILS % 0.9 % (0.0-2.0); EOSINOPHILS # 0.2 10^3/ul (0.0-0.5); EOSINOPHILS % 1.8 % (0.0-7.0); HEMATOCRIT 37.2 % (37.0-47.0); HEMOGLOBIN 12.1 g/dl (12.0-16.0); LYMPHOCYTES # 2.6 10^3/ul (0.8-2.9); LYMPHOCYTES % 29.2 % (15.0-51.0); MEAN CORPUSCULAR HEMOGLOBIN 25.7 pg (29.0-33.0); MEAN CORPUSCULAR HGB CONC 32.5 g/dl (32.0-37.0); MEAN CORPUSCULAR VOLUME 79.1 fl (82.0-101.0); MEAN PLATELET VOLUME 10.4 fl (7.4-10.4); MONOCYTE # 0.5 10^3/ul (0.3-0.9); MONOCYTES % 5.4 % (0.0-11.0); NEUTROPHIL # 5.6 10^3/ul (1.6-7.5); NEUTROPHILS % 62.5 % (39.0-77.0); PLATELET COUNT 335 10^3/UL (140-415); RED CELL DISTRIBUTION WIDTH 13.2 % (11.5-14.5)
[2018-08-24 11:47] LABS: INR 1.01; PROTIME 13.4 Sec (11.9-14.9)
[2018-08-24 11:48] LABS: ALANINE AMINOTRANSFERASE 15 IU/L (13-69); ALBUMIN 4.4 g/dl (3.3-4.9); ALBUMIN/GLOBULIN RATIO 1.07; ALKALINE PHOSPHATASE 77 IU/L (42-121); ANION GAP 14 (5-13); ASPARTATE AMINO TRANSFERASE 16 IU/L (15-46); BILIRUBIN,INDIRECT 0.4 mg/dl (0-1.1); BILIRUBIN,TOTAL 0.4 mg/dl (0.2-1.3); BLOOD UREA NITROGEN 13 mg/dl (7-20); CALCIUM 10.1 mg/dl (8.4-10.2); CARBON DIOXIDE 26 mmol/L (21-31); CHLORIDE 100 mmol/L (97-110); GLUCOSE 181 mg/dl (70-220); PARTIAL THROMBOPLASTIN TIME 29.2 Sec (23.0-35.0); POTASSIUM 4.2 mmol/L (3.5-5.1); SODIUM 140 mmol/L (135-144); TOTAL PROTEIN 8.5 g/dl (6.1-8.1)
[2018-08-24 11:51] LABS: CREATININE 0.42 mg/dl (0.44-1.00)
[2018-08-24] MEDS ORDERED: HEPARIN 1000 UNITS/ML 10 ML INJ (12:22)
[2018-08-24] MEDS ORDERED: MIDAZOLAM 1 MG/ML 2 ML INJ (12:22)
[2018-08-24] MEDS ORDERED: IODIXANOL LOCM 100 ML BTL (12:22)
[2018-08-24] MEDS ORDERED: FENTAnyl 50 MCG/ML VIAL (12:23)
[2018-08-24] MEDS ORDERED: CLOPIDOGREL 300 MG TAB (15:26)
[2018-08-24] MEDS ORDERED: SOD CHLORIDE 0.9% 1,000 ML IV (15:55)
[2018-08-24] MEDS ORDERED: ONDANSETRON 4 MG INJ IV (16:00)
[2018-08-24] MEDS: oxyCODONE 5 MG TAB PO (17:25)
[2018-08-24] MEDS: FENTAnyl 50 MCG/ML VIAL IV (18:24)
[2018-08-24] MEDS: ACETAMINOPHEN 325 MG TAB PO (20:00)
[2018-08-24] MEDS: IBUPROFEN 400 MG TAB PO (20:05)
== END 2018-08-24 20:41 | disposition home or self-care (01) ==
LOC: SDS 09:38
DX: I73.9 Peripheral vascular disease, unspecified (principal); L97.519 Non-pressure chronic ulcer of other part of right foot with unspecified severity
CPT/HCPCS: 37224; 75630; 75716; 80053; 82962; 85025; 85610; 85730